=== PATIENT | male | born 1945 ===

== ENCOUNTER 2018-11-10 10:19 | Day surgery (SDC) | payer MEDICARE, BC ==
[~2018-11-10 10:19] MED LIST: Acetaminophen TAB* 325 MG PO PRN; Buffered Lidocaine 1% SYRIN* 1 ML/SYRINGE INTRADERM ONE
[2018-11-10] MEDS ORDERED: Tetracaine 0.5% OPTH.SOL 4 ML* 1 DROP BTL ONE (12:03)
[2018-11-10] MEDS ORDERED: Lidocaine 1%* 5 ML VIAL ONE (12:03)
[2018-11-10] MEDS ORDERED: Tropicamide 1% OPTH.SOL* BTL ONE (12:03)
[2018-11-10] MEDS ORDERED: Phenylephrine 2.5% OPTH.SOL* 2 ML BTL ONE (12:03)
[2018-11-10] MEDS ORDERED: Ketorolac 0.5% OPHTH (NF) 0.5 % 5 ML BTL ONE (12:03)
[2018-11-10] MEDS ORDERED: Neomycin/Polymy/Dex OPHTH.OIN* 3.5 GM ONE (12:03)
[2018-11-10] MEDS ORDERED: Cyclopentolate 1% OPTH.SOL* 2 ML BTL ONE (12:03)
[2018-11-10] MEDS ORDERED: fentaNYL* 50 MCG/ML 2 ML VIAL (100 MCG VIAL) ONE (13:01)
[2018-11-10] MEDS ORDERED: Midazolam* 1 MG/ML 2 ML VIAL (2 MG) ONE ×3 (13:02→13:20)
[2018-11-10 13:54] VITALS: BP 145/75
--- NOTE | 2018-11-10 16:56 | OP ---
DATE OF OPERATION: 11/10/18 [facility] DATE OF : 49 SURGEON: Dr. Curt Hooker. PLATING TECHNICIAN: None. ANESTHESIA: Topical with intravenous sedation. PRE-OP DIAGNOSIS: Cataract, left eye. POST-OP DIAGNOSIS: Cataract, left eye. OPERATIVE PROCEDURE: Phacoemulsification and cataract extraction with posterior chamber intraocular lens implant, left eye. COMPLICATIONS: None. BLOOD LOSS: None. DESCRIPTION OF PROCEDURE: The patient was brought to the operating room and received a small amount of intravenous sedation. A drop of Tetracaine was placed in his left eye. He was prepped and draped in the usual sterile fashion for ophthalmic surgery and attention was directed to the left eye where a speculum was placed. A paracentesis was created at the 5 o'clock position and 0.1 cc of 1 percent preservative-free Lidocaine was injected into the anterior chamber followed by DisCoVisc. The eye was digitally stabilized while a 2.75 mm keratome was used to create a triplanar clear corneal incision at the 3 o' clock position. A continuous curvilinear capsulorrhexis was created with a cystotome and Utrata forceps. BSS on a cannula was used to hydrodissect the lens from the capsule. Phacoemulsification was performed in a divide-and- conquer technique to create four fragments which were removed. Residual cortical material was removed with irrigation and aspiration. DisCoVisc was used to inflate the capsular bag and an AU00T0 18.5 diopter lens was folded and inserted into the capsular bag. DisCoVisc was removed using irrigation and aspiration. BSS on a cannula was used to hydrate the corneal stroma and seal the wound. At the end of the case the pupil was round and the lens was centered. The eye was of normal pressure and the wound was water tight. The speculum was removed and topical Maxitrol ointment was placed on the surface of the eye. The eye was closed, patched and shielded and the patient was sent to the recovery room in stable condition with post operative instructions and follow-up appointment given. [id number]/[id number] #: [id number]
== END 2018-11-10 14:05 | disposition home or self-care (01) ==
LOC: OREAST 10:19
PROVIDERS: ATTEND Ophthalmology
DX: H25.042 Posterior subcapsular polar age-related cataract, left eye (principal); R94.31 Abnormal electrocardiogram [ECG] [EKG]; E78.5 Hyperlipidemia, unspecified; E03.9 Hypothyroidism, unspecified; N40.0 Benign prostatic hyperplasia without lower urinary tract symptoms; C61 Malignant neoplasm of prostate
CPT/HCPCS: A9270-GY; J2250; J3010; V2632

== ENCOUNTER 2019-02-25 16:03 | Emergency (ER) | payer MEDICARE, BC ==
[2019-02-25 16:13] VITALS: BP 129/64
[2019-02-25] MEDS ORDERED: Ciprofloxacin TAB* 500 MG PO ONE (16:33)
--- NOTE | 2019-02-25 16:33 | UC ---
Ear Complaint HPI - HPI Summary HPI Summary: R ear plugged for a few days. WAnts to have his ear irrigated. denies pain or fever. - History of Current Complaint Chief Complaint: UCEar Stated Complaint: EAR COMPLAINT Time Seen by Provider: 02/25/19 16:30 Hx Obtained From: Patient Pain Intensity: 0 Pain Scale Used: 0-10 Numeric Aggravating Factors: Nothing Alleviating Factors: Nothing - Allergies/Home Medications Allergies/Adverse Reactions: Allergies Allergy/AdvReac Type Severity Reaction Status Date / Time No Known Allergies Allergy Verified 02/25/19 16:13 PMH/Surg Hx/FS Hx/Imm Hx Previously Healthy: Yes Cardiovascular History: Hypertension - Surgical History Surgical History: Yes Surgery Procedure, Year, and Place: right hand, [place], [facility] [place]ile[place] a child - Social History Alcohol Use: Daily Alcohol Amount: 1 per day Substance Use Type: None Smoking Status (MU): Former Smoker Amount Used/How Often: 1/2 pack a day for9 yrs When Did the Patient Quit Smoking/Using Tobacco: 1973 Review of Systems All Other Systems Reviewed And Are Negative: Yes Constitutional: Positive: Negative ENT: Positive: Other - R ear plugged. Negative: Sore Throat, Ear Ache Physical Exam Triage Information Reviewed: Yes Appearance: Well-Appearing Vital Signs: Initial Vital Signs Temp 97.8 F 02/25/19 16:09 Pulse 65 02/25/19 16:09 Resp 20 02/25/19 16:09 BP 129/64 02/25/19 16:09 Pulse Ox 97 02/25/19 16:09 Vital Signs Reviewed: Yes ENT: Positive: Pharynx normal, TMs normal - left side, Other - r canal has excess cerumen Ear Complaint Course/Dx - Course Course Of Treatment: R ear irrigated after pt. felt it being plugged for a few days. No other symptoms. vitals good. - Differential Dx/Diagnosis Differential Diagnosis/HQI/PQRI: Cerumen Impaction, Otitis Externa, URI Provider Diagnosis: Cerumen impaction Discharge - Sign-Out/Discharge Documenting (check all that apply): Patient Departure All imaging exams completed and their final reports reviewed: No Studies - Discharge Plan Condition: Good Disposition: HOME Patient Education Materials: Cerumen Impaction (ED) Referrals: Bronson Bhandari MD [Primary Care Provider] - Additional Instructions: follow up with primary care if not improving. - Billing Disposition and Condition Condition: GOOD Disposition: Home
== END 2019-02-25 17:10 | disposition home or self-care (01) ==
LOC: UCEAST 16:03
DX: H61.21 Impacted cerumen, right ear (principal); I10 Essential (primary) hypertension; Z87.891 Personal history of nicotine dependence
CPT/HCPCS: 99212; G0463